=== PATIENT | male | born 2000 | race Caucasian/White ===

== ENCOUNTER 2024-02-06 08:07 | Emergency (ER) | payer BC ==
[~2024-02-06] VITALS: Ht 177.8 cm; Wt 68.2 kg
[2024-02-06 08:22] VITALS: TEMP 98.1
[2024-02-06 10:59] VITALS: BP 121/79; PULSE 81
== END 2024-02-06 10:59 | disposition home or self-care (01) ==
LOC: COL.ER 08:07
DX: J02.9 Acute pharyngitis, unspecified (principal); Z91.040 Latex allergy status